=== PATIENT | female | born 1955 | race Hispanic/Latino ===

== ENCOUNTER 2019-04-26 11:12 | Observation (INO) | payer SELFPAY ==
[2019-04-26] MEDS ORDERED: dilTIAZem 25 MG/5 ML INJ IV ONE ×2 (11:47→12:02)
[2019-04-26 11:55] LABS: Basophils % (Auto) 0.3 % (0.0-1.8); Eosinophils % (Auto) 0.2 % (0.0-4.3); Hematocrit 42.6 % (30.3-42.9); Lymphocytes # (Auto) 1.7 K/mm3 (1.2-5.4); Lymphocytes % (Auto) 12.6 % (13.4-35.0); Mean Corpuscular HGB Conc 33 % (30-34); Mean Corpuscular Volume 92 fl (79-97); Monocytes # (Auto) 0.7 K/mm3 (0.0-0.8); Monocytes % (Auto) 5.1 % (0.0-7.3); Platelet Count 232 K/mm3 (140-440); Red Blood Count 4.61 M/mm3 (3.65-5.03); Red Cell Distribution Width 14.3 % (13.2-15.2)
[2019-04-26] MEDS ORDERED: dilTIAZem/D5W 100 MG/100 ML BAG IV SCH (12:00)
[2019-04-26 12:06] LABS: INR 1.61 (0.87-1.13); Partial Thromboplastin Time 31.1 Sec. (24.2-36.6)
--- NOTE | 2019-04-26 12:08 | Emergency Department Report ---
ED General Adult HPI - General Chief complaint: Dyspnea/Respdistress Stated complaint: AFIB Time Seen by Provider: 04/26/19 11:36 Source: patient, EMS Mode of arrival: Stretcher Limitations: No Limitations - History of Present Illness Initial comments: This is a [age]-year-old lady who is an extremely poor historian. She can tell me that she had a leaky heart valve and perhaps an intramural thrombus through very vague history. She was first diagnosed with apparent atrial fibrillation and apparently in September 2018. She states that she spent 2 weeks at [facility]. She was subsequently placed on Eliquis and diltiazem. She admits that she has run out of her diltiazem. She has not followed up with the [place] [facility] clinic since February. The patient states that she has had dyspnea on exertion since yesterday and perhaps longer. She is not keenly aware of her heart rate. She cannot tell me if she is in chronic atrial fibrillation or not. Her dyspnea became worse this morning and she called EMS. -: Gradual, days(s) Quality: other (patient denies chest pain) Associated Symptoms: denies other symptoms, shortness of breath Treatments Prior to Arrival: none - Related Data Allergies Allergy/AdvReac Type Severity Reaction Status Date / Time No Known Allergies Allergy Verified 04/26/19 11:27 ED Review of Systems ROS: Stated complaint: AFIB Other details as noted in HPI Constitutional: denies: chills, fever Eyes: denies: eye pain, eye discharge, vision change ENT: denies: ear pain, throat pain Respiratory: cough (nonproductive), shortness of breath, SOB with exertion. denies: wheezing Cardiovascular: as per HPI. denies: chest pain, palpitations Endocrine: no symptoms reported Gastrointestinal: denies: abdominal pain, nausea, diarrhea Genitourinary: denies: urgency, dysuria, discharge Musculoskeletal: denies: back pain, joint swelling, arthralgia Skin: denies: rash, lesions Neurological: denies: headache, weakness, paresthesias Psychiatric: denies: anxiety, depression Hematological/Lymphatic: denies: easy bleeding, easy bruising ED Past Medical Hx - Past Medical History Previous Medical History?: Yes Additional medical history: PE--takes Elliquis, "leaky valce", Rheumatic Fever - Surgical History Past Surgical History?: No - Social History Smoking Status: Never Smoker Substance Use Type: None ED Physical Exam - General Limitations: No Limitations General appearance: alert, in no apparent distress - Head Head exam: Present: atraumatic, normocephalic - Eye Eye exam: Present: normal appearance. Absent: scleral icterus - ENT ENT exam: Present: mucous membranes moist - Neck Neck exam: Present: normal inspection. Absent: tenderness, meningismus - Respiratory Respiratory exam: Present: normal lung sounds bilaterally. Absent: respiratory distress - Cardiovascular Cardiovascular Exam: Present: tachycardia, irregular rhythm. Absent: systolic murmur, diastolic murmur, rubs, gallop - GI/Abdominal GI/Abdominal exam: Present: soft, normal bowel sounds. Absent: distended, tenderness, guarding, rebound, rigid - Extremities Exam Extremities exam: Present: normal inspection - Back Exam Back exam: Present: normal inspection - Neurological Exam Neurological exam: Present: alert, oriented X3, CN II-XII intact. Absent: motor sensory deficit - Psychiatric Psychiatric exam: Present: normal affect, normal mood - Skin Skin exam: Present: warm, dry, intact, normal color. Absent: rash ED Course Vital Signs 04/26/19 04/26/19 04/26/19 11:23 11:24 12:25 Temperature 97.8 F Pulse Rate 150 H 130 H Respiratory 18 Rate Blood Pressure 116/98 129/73 Blood Pressure [Right] O2 Sat by Pulse 91 95 Oximetry 04/26/19 04/26/19 04/26/19 12:49 13:00 14:00 Temperature 98.3 F Pulse Rate 110 H 106 H 106 H Respiratory 16 16 Rate Blood Pressure 107/70 Blood Pressure 106/70 112/91 [Right] O2 Sat by Pulse 96 100 Oximetry 04/26/19 14:33 Temperature Pulse Rate 116 H Respiratory Rate Blood Pressure Blood Pressure [Right] O2 Sat by Pulse Oximetry - Reevaluation(s) Reevaluation #1: Patient is noted to be in a prerenal state with a mildly elevated creatinine. He does have a BNP of greater than 10,000. she has cardiomyopathy. Her potassium is 5.2 and her CO2 is slightly low evidence of mild lactic acidosis. She was given a fluid bolus. Placed on a diltiazem drip. She is admitted by the hospitalist further care and evaluation. Negative ordered a repeat BMP to check on her potassium and renal status after fluids. [place] has cardiomyopathy. She may need diuresis later. I will leave that up to the hospitalist. 04/26/19 15:06 ED Medical Decision Making - Lab Data Result diagrams: 04/26/19 11:38 04/26/19 11:38 Laboratory Results - last 24 hr 04/26/19 04/26/19 04/26/19 11:38 11:38 11:38 WBC 13.6 H RBC 4.61 Hgb 14.0 Hct 42.6 MCV 92 MCH 30 MCHC 33 RDW 14.3 Plt Count 232 Lymph % (Auto) 12.6 L [place] % (Auto) 5.1 Eos % (Auto) 0.2 Baso % (Auto) 0.3 Lymph # 1.7 [place] # 0.7 Eos # 0.0 Baso # 0.0 Seg Neutrophils % 81.8 H Seg Neutrophils # 11.1 H PT 19.4 H INR 1.61 H APTT 31.1 Sodium 137 Potassium 5.2 H Chloride 101.3 Carbon Dioxide 16 L Anion Gap 25 BUN 31 H Creatinine 1.4 H Estimated GFR 38 BUN/Creatinine Ratio 22 Glucose 92 Lactic Acid Calcium 8.9 Magnesium Total Bilirubin Direct Bilirubin Indirect Bilirubin AST ALT Alkaline Phosphatase Troponin T < 0.010 NT-Pro-B Natriuret Pep Total Protein Albumin Albumin/Globulin Ratio Urine Color Urine Turbidity Urine pH Ur Specific [place] Urine Protein Urine Glucose (UA) Urine Ketones Urine Blood Urine Nitrite Urine Bilirubin Urine Urobilinogen Ur Leukocyte Esterase Urine WBC (Auto) Urine RBC (Auto) U Epithel Cells (Auto) Hyaline Casts Urine Mucus Urine Opiates Screen Urine Methadone Screen Ur Barbiturates Screen Ur Phencyclidine Scrn Ur Amphetamines Screen U Benzodiazepines Scrn Urine Cocaine Screen U Marijuana (THC) Screen Drugs of Abuse Note 04/26/19 04/26/19 04/26/19 11:38 11:46 12:05 WBC RBC Hgb Hct MCV MCH MCHC RDW Plt Count Lymph % (Auto) [place] % (Auto) Eos % (Auto) Baso % (Auto) Lymph # [place] # Eos # Baso # Seg Neutrophils % Seg Neutrophils # PT INR APTT Sodium Potassium Chloride Carbon Dioxide Anion Gap BUN Creatinine Estimated GFR BUN/Creatinine Ratio Glucose Lactic Acid 2.10 H* Calcium Magnesium 2.30 Total Bilirubin 0.70 Direct Bilirubin 0.2 Indirect Bilirubin 0.5 AST 222 H ALT 287 H Alkaline Phosphatase 102 Troponin T NT-Pro-B Natriuret Pep 90308 H Total Protein 6.3 Albumin 3.7 L Albumin/Globulin Ratio 1.4 Urine Color Yellow Urine Turbidity Slightly-cloudy Urine pH 5.0 Ur Specific [place] 1.021 Urine Protein 100 mg/dl Urine Glucose (UA) Neg Urine Ketones Neg Urine Blood Neg Urine Nitrite Neg Urine Bilirubin Neg Urine Urobilinogen < 2.0 Ur Leukocyte Esterase Neg Urine WBC (Auto) 4.0 Urine RBC (Auto) 2.0 U Epithel Cells (Auto) 11.0 Hyaline Casts 6 Urine Mucus Few Urine Opiates Screen Urine Methadone Screen Ur Barbiturates Screen Ur Phencyclidine Scrn Ur Amphetamines Screen U Benzodiazepines Scrn Urine Cocaine Screen U Marijuana (THC) Screen Drugs of Abuse Note 04/26/19 04/26/19 12:05 12:29 WBC RBC Hgb Hct MCV MCH MCHC RDW Plt Count Lymph % (Auto) [place] % (Auto) Eos % (Auto) Baso % (Auto) Lymph # [place] # Eos # Baso # Seg Neutrophils % Seg Neutrophils # PT INR APTT Sodium Potassium Chloride Carbon Dioxide Anion Gap BUN Creatinine Estimated GFR BUN/Creatinine Ratio Glucose Lactic Acid 2.10 H* Calcium Magnesium Total Bilirubin Direct Bilirubin Indirect Bilirubin AST ALT Alkaline Phosphatase Troponin T NT-Pro-B Natriuret Pep Total Protein Albumin Albumin/Globulin Ratio Urine Color Urine Turbidity Urine pH Ur Specific [place] Urine Protein Urine Glucose (UA) Urine Ketones Urine Blood Urine Nitrite Urine Bilirubin Urine Urobilinogen Ur Leukocyte Esterase Urine WBC (Auto) Urine RBC (Auto) U Epithel Cells (Auto) Hyaline Casts Urine Mucus Urine Opiates Screen Presumptive negative Urine Methadone Screen Presumptive negative Ur Barbiturates Screen Presumptive negative Ur Phencyclidine Scrn Presumptive negative Ur Amphetamines Screen Presumptive negative U Benzodiazepines Scrn Presumptive negative Urine Cocaine Screen Presumptive negative U Marijuana (THC) Screen Presumptive negative Drugs of Abuse Note Disclamer - EKG Data -: EKG Interpreted by Hi Rate: tachycardia - EKG Data Interpretation: nonspecific ST-T wave asif, other (atrial fibrillation with RVR heart rate 1 5160) - Radiology Data Radiology results: report reviewed (consistent with pneumonia per radiologist), image reviewed (patient has a right lower lobe infiltrate. Asymmetric pulmonary edema versus pneumonia) Critical Care Time: Yes Critical care time in (mins) excluding proc time.: 60 Critical care attestation.: If time is entered above; I have spent that time in minutes in the direct care of this critically ill patient, excluding procedure time. ED Disposition Clinical Impression: Prerenal azotemia, Hyperkalemia, Elevated lactic acid level, Atrial fibrillation with RVR Right lower lobe pneumonia Qualifiers: Pneumonia type: due to unspecified organism Qualified Code(s): J18.9 - Pneumonia, unspecified organism Cardiomyopathy Qualifiers: Cardiomyopathy type: unspecified Qualified Code(s): I42.9 - Cardiomyopathy, unspecified Disposition: 09 OP ADMIT IP TO THIS HOSP Is pt being admited?: Yes Does the pt Need Aspirin: Yes Condition: Stable Instructions: Bacterial Pneumonia (ED) Time of Disposition: 15:09
[2019-04-26] MEDS ORDERED: cefTRIAXone/NS 1 GM/50 ML 1 GM/50 ML BAG IV ONE (12:10)
[2019-04-26 12:16] LABS: BUN/Creatinine Ratio 22; Blood Urea Nitrogen 31 mg/dL (7-17); Calcium 8.9 mg/dL (8.4-10.2); Hemolysis Index 48
[2019-04-26 12:18] LABS: Albumin 3.7 g/dL (3.9-5); Bilirubin,Direct 0.2 mg/dL (0-0.2)
[2019-04-26] MEDS ORDERED: APIXABAN 5 MG TAB PO SCH (12:25)
--- NOTE | 2019-04-26 12:28 | XRay Report ---
CHEST 1 VIEW INDICATION / CLINICAL INFORMATION: Dyspnea. COMPARISON: 07/22/2007 FINDINGS: SUPPORT DEVICES: None. HEART / MEDIASTINUM: Borderline enlarged. LUNGS / PLEURA: Mild pulmonary vascular congestion. There is focal parenchymal disease in the right l rima base which is nonspecific but certainly worrisome for pneumonia. No pleural effusion. Left lung i s grossly clear. No pneumothorax. ADDITIONAL FINDINGS: No significant additional findings. IMPRESSION: 1. Right basilar parenchymal disease worrisome for pneumonia. Radiographic follow-up is recommended. Signer Name: Lynn Santacruz MD Signed: 04/26/2019 12:23 PM Workstation Name: [id number]
[2019-04-26 12:29] LABS: Bilirubin,Urine NEG (Negative); Blood,Urine NEG (Negative); Color,Urine Yellow (Yellow); Hyaline Casts,Urine 6 /LPF; Mucus,Urine FEW /HPF; Urobilinogen,Urine < 2.0 mg/dL (<2.0)
[2019-04-26 12:31] LABS: Amphetamine Screen,Urine PRESUMPTIVE NEGATIVE; Benzodiazepines Screen,Urine PRESUMPTIVE NEGATIVE; Cannabinoid Screen,Urine PRESUMPTIVE NEGATIVE; Cocaine Screen,Urine PRESUMPTIVE NEGATIVE; Methadone Screen,Urine PRESUMPTIVE NEGATIVE; Opiate Screen,Urine PRESUMPTIVE NEGATIVE
[2019-04-26] MEDS ORDERED: dilTIAZem 30 MG TAB PO ONE (12:34)
[2019-04-26] MEDS ORDERED: SODIUM CHLORIDE 0.45% 1000 ML 1,000 ML IV SCH (13:00)
[2019-04-26] MEDS ORDERED: ASPIRIN 81 MG TAB CHEW PO ONE (15:10)
[2019-04-26] MEDS ORDERED: ASPIRIN 81 MG TAB CHEW ONE (16:07)
--- NOTE | 2019-04-26 16:31 | Event Note ---
Date: 04/26/19 64 YO Female with Atrial Fib with RVE currently on therapeutic anticoagulation presents to ED for evaluation. Pt states that she ran out of her cardizem several days ago and has experienced chest palpitations over the past 24 hours. Pt transported to [facility] via private vehicle. Pt seen and evaluated in ED and treated with Cardizem bolus with normalization of heart rate and resolution of symptoms. Pt medically optimized and back to usual state of health. Pt acknowledges compliance with all other medication and has them in her possession with multiple tablets remaining. Pt discharged home with oral cardizem. Pt denies shortness of breath or change in exercise tolerance. Pt instructed to f/u pcp 3 days, and f/u Cardiology 3-5 days. - General Limitations: No Limitations General appearance: alert, in no apparent distress - Head Head exam: Present: atraumatic, normocephalic - Eye Eye exam: Present: normal appearance. Absent: scleral icterus - ENT ENT exam: Present: mucous membranes moist - Neck Neck exam: Present: normal inspection. Absent: tenderness, meningismus - Respiratory Respiratory exam: Present: normal lung sounds bilaterally. Absent: respiratory distress - Cardiovascular Cardiovascular Exam: Present: irregular irregular, rate controlled and WNL. Absent: systolic murmur, diastolic murmur, rubs, gallop - GI/Abdominal GI/Abdominal exam: Present: soft, normal bowel sounds. Absent: distended, tenderness, guarding, rebound, rigid - Extremities Exam Extremities exam: Present: normal inspection - Back Exam Back exam: Present: normal inspection - Neurological Exam Neurological exam: Present: alert, oriented X3, CN II-XII intact. Absent: motor sensory deficit - Psychiatric Psychiatric exam: Present: normal affect, normal mood - Skin Skin exam: Present: warm, dry, intact, normal color. Absent: rash
[2019-04-26 17:43] LABS: Calcium 9.3 mg/dL (8.4-10.2)
[2019-04-26 17:54] VITALS: BP 124/79
== END 2019-04-26 19:30 | disposition home or self-care (01) ==
LOC: ED 11:12 → 3A 12:46
PROVIDERS: ADMIT Internal Medicine; ATTEND Internal Medicine
DX: I48.91 Unspecified atrial fibrillation (principal); R79.89 Other specified abnormal findings of blood chemistry; E87.5 Hyperkalemia; I48.20 Chronic atrial fibrillation, unspecified; J18.9 Pneumonia, unspecified organism; I42.9 Cardiomyopathy, unspecified
CPT/HCPCS: 36415; 71045; 80048; 80076; 80307; 81001; 82140; 83735; 83880; 84484; 85025; 85610; 85730; 87040; 93005; 96365; 96366; 96367; 96368; 96376; 99291; G0378; J0696; J1956